=== PATIENT | male | born 1995 | race Caucasian/White ===

== ENCOUNTER 2016-09-18 19:56 | Emergency (ER) | payer BC ==
[~2016-09-18] VITALS: Ht 182.9 cm; Wt 87.5 kg
[~2016-09-18 19:56] MED LIST: AZITTAB PO
[2016-09-18 20:09] VITALS: BP 147/78; PULSE 52; TEMP 36.6; O2SAT 99; Ht 182.9 cm; Wt 87.5 kg
--- NOTE | 2016-09-18 20:37 | EMERGENCY ROOM VISIT NOTE ---
ED Visit Note First contact with patient: 20:24 CHIEF COMPLAINT: Tick bite on back HISTORY OF PRESENT ILLNESS: This 21-year-old male presents the ER stating he thinks he has a tick bite on his back. The patient states that he noticed some itching and red area on his back today. He also noticed that there is a black spot associated with the red area. He does admit that [place]. The patient did not try to remove the tick. REVIEW OF SYSTEMS: 6 system review was performed and was negative unless stated otherwise in history of present illness. PMH: The patient is healthy; there is no significant medical or surgical history. SOCIAL HISTORY: Patient lives with his parents. The patient denies any tobacco or alcohol use. PHYSICAL EXAM: Vital Signs: Were reviewed Reviewed Nurse's notes. GEN.: 21- year-old male appears in no acute distress. MENTAL Status: Alert and oriented 3. BACK: The patient has multiple freckles and nevi on his upper back. The area of concern there is a approximately 6 mm of raised slightly red and scaly lesion with a small black dot noted on the inferior aspect. No external tick parts identified. EMERGENCY COURSE: I discussed with the patient that I do not feel that this is a tick bite but is rather an abnormal nevi. I used a small 28-gauge needle to open a dark area and there were no visible tick parts under microscopic examination. Bacitracin and a bandage was applied. DIAGNOSIS: Nevi upper back DISCHARGE INSTRUCTIONS & TREATMENT: Recommend appointment with dermatology for further evaluation and treatment. Current/Historical Medications Scheduled Azithromycin (Z-Malik) (Zithromax (Z-Malik)), 0 PKT PO UD Allergies Coded Allergies: Amoxicillin (Verified Allergy, Intermediate, rash, 09/18/16) Vital Signs Date Time Temp Pulse Resp B/P Pulse Ox O2 Delivery O2 Flow Rate FiO2 09/18/16 20:09 36.6 52 18 147/78 99 Room Air Departure Information Referrals No Doctor, Assigned (PCP) Patient Instructions My [facility]
== END 2016-09-18 20:51 | disposition home or self-care (01) ==
LOC: C.EDB 20:00 → C.EDD 20:51
DX: D22.9 Melanocytic nevi, unspecified (principal)

== ENCOUNTER 2016-12-04 21:11 | Emergency (ER) | payer BC ==
[~2016-12-04] VITALS: Ht 185.4 cm; Wt 75.0 kg
[2016-12-04 21:15] VITALS: TEMP 36.5
[2016-12-04 21:22] VITALS: O2SAT 97
[2016-12-04] MEDS ORDERED: MULT-513 PO (21:32)
[2016-12-04] MEDS ORDERED: OMEG10007 PO (21:32)
[2016-12-04] MEDS ORDERED: GARL1CAP6 PO (21:32)
[2016-12-04] MEDS ORDERED: GINS1CAP PO (21:32)
[2016-12-04] MEDS ORDERED: SODIUM CHLORIDE 0.9% 1000ML 1,000 ML IV STA (21:38)
[2016-12-04 21:41] VITALS: Ht 185.4 cm; Wt 75.0 kg
[2016-12-04 22:06] LABS: HEMATOCRIT 40.6 % (42-52); MEAN CELL VOLUME 88.6 fL (80-100); MEAN CORPUSCULAR HEMOGLOBIN 30.6 pg (25-34); MEAN CORPUSCULAR HGB CONC 34.5 g/dl (32-36); MEAN PLATELET VOLUME 10.9 fL (7.4-10.4); PLATELET COUNT 158 K/uL (130-400); RED BLOOD COUNT 4.58 M/uL (4.7-6.1); WHITE BLOOD COUNT 4.01 K/uL (4.8-10.8)
[2016-12-04 22:09] LABS: URINE APPEARANCE CLEAR (CLEAR); URINE BILIRUBIN NEG (NEG); URINE COLOR YELLOW; URINE NITRITE NEG (NEG); UROBILINOGEN NEG (NEG)
[2016-12-04 22:10] LABS: MANUAL MICROSCOPIC REQUIRED? NO; REVIEW REQ? NO
[2016-12-04 22:16] LABS: INR 1.1 (0.9-1.1); PARTIAL THROMBOPLASTIN RATIO 1.2; PROTHROMBIN TIME (PATIENT) 11.4 SECONDS (9.0-12.0)
[2016-12-04 22:25] LABS: ALT/SGPT 24 U/L (12-78); BLOOD UREA NITROGEN 11 mg/dl (7-18); BUN/CREATININE RATIO 10.1 (10-20); CALCIUM 8.9 mg/dl (8.5-10.1); CARBON DIOXIDE 28 mmol/L (21-32); CHLORIDE 108 mmol/L (98-107); GLUCOSE 99 mg/dl (70-99); MAGNESIUM 2.1 mg/dl (1.8-2.4); POTASSIUM 3.8 mmol/L (3.5-5.1); SODIUM 142 mmol/L (136-145)
--- NOTE | 2016-12-04 22:29 | DIAGNOSTIC IMAGING REPORT ---
CHEST ONE VIEW PORTABLE CLINICAL HISTORY: EVALUATE WEAKNESS dyspnea COMPARISON STUDY: No previous studies for comparison. FINDINGS: The bones soft tissues and hemidiaphragms are normal. The cardiomediastinal silhouette is normal. The lungs are clear. The pulmonary vasculature is normal. IMPRESSION: Negative chest. The above report was generated using voice recognition software. It may contain grammatical, syntax or spelling errors. Electronically signed by: Gary Redmond M.D. 12/04/2016 10:28 PM Dictated Date/Time: 12/04/2016 10:27 PM
[2016-12-04 22:36] LABS: ALKALINE PHOSPHATASE 66 U/L (45-117); AST/SGOT 16 U/L (15-37); CKMB/CK RATIO 0.8 (0-3.0)
[2016-12-04 23:01] LABS: C-REACTIVE PROTEIN < 0.29 mg/dl (0-0.29)
[2016-12-04 23:07] LABS: LYME DISEASE AB IGG NEG (NEG); LYME DISEASE AB IGM NEG (NEG)
[2016-12-04 23:12] LABS: BASO % 0.5 %; BASO ABS # 0.02 K/uL (0-0.2); COMPLETE YES; EOS % 1.5 %; LYMPH % 56.4 %; LYMPH ABS # 2.26 K/uL (1.2-3.4); MONO % 7.5 %; NEUT % 34.1 %
[2016-12-04 23:32] VITALS: BP 108/73; PULSE 51; O2SAT 99
--- NOTE | 2016-12-05 01:13 | EMERGENCY ROOM VISIT NOTE ---
History Report prepared by Ezekiel: Eloisa Waters Under the Supervision of: Dr. Oscar Pappas M.D. First contact with patient: 21:31 Chief Complaint: BRADYCARDIA Stated Complaint: LOW HEART RATE, FATIGUE, SHAKINESS History of Present Illness The patient is a 21 year old male who presents to the Emergency Room with complaints of persistent bradycardia that began prior to arrival. The patient states that over the past day he has been feeling short of breath and fatigued. He additionally states that he was feeling chilled and shaky all day. The patient notes that when he arrived home he had his mother who is a nurse took his pulse with a machine and then manually and was found to be 37 beats per minute and 40 beats per minute. He states that this persisted for 20-25 minutes. The patient additionally reports that his blood pressure was at 116/ 60 mmHg. He states that over the past several months he has intermittently felt short of breath and fatigued. The patient additionally reports dizziness that he describes as near syncopal. He states that he has had several tick bites recently. The patient states that he has been experiencing bilateral hand tingling and right thumb numbness. He states that his vaccinations are up to date. The patient denies any recent illnesses. He denies any previous surgeries. Pt denies LOC, headache, fevers, diaphoresis, visual changes, neck pain, chest pain, nausea, vomiting, abdominal pain, back pain, melena, hematochezia, urinary symptoms, numbness, weakness, lymphadenopathy, rash, or other complaints. Source of History: patient Onset: prior to arrival Position: other (global) Symptom Intensity: 37-40 beats per minute Quality: other (bradycardia) Timing: other (persistent) Associated Symptoms: + SOB, + fatigue Note: Associated symptoms: dizziness, near syncopal Review of Systems See HPI for pertinent positives and negatives. A total of ten systems were reviewed and were otherwise negative. Past Medical & Surgical No active medical problems Family History No pertinent family history stated. Social History Smoking Status: Never Smoker Marital Status: single Occupation Status: employed Current/Historical Medications Scheduled Fish Oil (Timpson-3), 1 CAP PO DAILY Garlic (Garlic), 1 MG PO DAILY Ginseng (Ginseng Extract), 1 CAP PO DAILY Multivitamins/Minerals (Mvi With Minerals), 1 TAB PO DAILY Allergies Coded Allergies: Amoxicillin (Verified Allergy, Intermediate, rash, 09/18/16) Physical Exam Vital Signs Date Time Temp Pulse Resp B/P (MAP) Pulse Ox O2 Delivery O2 Flow Rate FiO2 12/04/16 23:32 51 16 108/73 99 Room Air 12/04/16 22:16 56 16 120/66 99 Room Air 12/04/16 22:15 47 121/67 52 120/66 56 134/88 12/04/16 21:29 52 12/04/16 21:22 99 Room Air 12/04/16 21:22 97 Room Air 12/04/16 21:15 36.5 65 16 153/72 100 Room Air Physical Exam GENERAL: Awake, alert, well-appearing, in no distress HENT: Normocephalic, atraumatic. Oropharynx unremarkable. EYES: Normal conjunctiva. Sclera non-icteric. NECK: Supple. No nuchal rigidity. FROM. No JVD. RESPIRATORY: Clear to auscultation. CARDIAC: Bradycardic rate, normal rhythm. Extremities warm and well perfused. Pulses equal. ABDOMEN: Soft, non-distended. No tenderness to palpation. No rebound or guarding. No masses. RECTAL: Deferred. MUSCULOSKELETAL: Chest examination reveals no tenderness. The back is symmetrical on inspection without obvious abnormality. There is no CVA tenderness to palpation. No joint edema. LOWER EXTREMITIES: Calves are equal size bilaterally and non-tender. No edema. No discoloration. NEURO: Normal sensorium. No sensory or motor deficits noted. SKIN: No rash or jaundice noted. Medical Decision & Procedures ER Provider Diagnostic Interpretation: X-ray: Per my interpretation, radiologist review. CHEST ONE VIEW PORTABLE CLINICAL HISTORY: EVALUATE WEAKNESS dyspnea COMPARISON STUDY: No previous studies for comparison. FINDINGS: The bones soft tissues and hemidiaphragms are normal. The cardiomediastinal silhouette is normal. The lungs are clear. The pulmonary vasculature is normal. IMPRESSION: Negative chest. The above report was generated using voice recognition software. It may contain grammatical, syntax or spelling errors. Electronically signed by: Gary Redmond M.D. 12/04/2016 10:28 PM Dictated Date/Time: 12/04/2016 10:27 PM Laboratory Results 12/04/16 21:45 Red Blood Count 4.58, Mean Corpuscular Volume 88.6, Mean Corpuscular Hemoglobin 30.6, Mean Corpuscular Hemoglobin Concent 34.5, Mean Platelet Volume 10.9, Neutrophils (%) (Auto) 34.1, Lymphocytes (%) (Auto) 56.4, Monocytes (%) (Auto) 7.5, Eosinophils (%) (Auto) 1.5, Basophils (%) (Auto) 0.5, Neutrophils # (Auto) 1.37, Lymphocytes # (Auto) 2.26, Monocytes # (Auto) 0.30, Eosinophils # (Auto) 0.06, Basophils # (Auto) 0.02 12/04/16 21:45 Test 12/04/16 21:45 12/04/16 21:55 White Blood Count 4.01 K/uL (4.8-10.8) Red Blood Count 4.58 M/uL (4.7-6.1) Hemoglobin 14.0 g/dL (14.0-18.0) Hematocrit 40.6 % (42-52) Mean Corpuscular Volume 88.6 fL (80-100) Mean Corpuscular Hemoglobin 30.6 pg (25-34) Mean Corpuscular Hemoglobin Concent 34.5 g/dl (32-36) Platelet Count 158 K/uL (130-400) Mean Platelet Volume 10.9 fL (7.4-10.4) Neutrophils (%) (Auto) 34.1 % Lymphocytes (%) (Auto) 56.4 % Monocytes (%) (Auto) 7.5 % Eosinophils (%) (Auto) 1.5 % Basophils (%) (Auto) 0.5 % Neutrophils # (Auto) 1.37 K/uL (1.4-6.5) Lymphocytes # (Auto) 2.26 K/uL (1.2-3.4) Monocytes # (Auto) 0.30 K/uL (0.11-0.59) Eosinophils # (Auto) 0.06 K/uL (0-0.5) Basophils # (Auto) 0.02 K/uL (0-0.2) RDW Standard Deviation 43.4 fL (36.4-46.3) RDW Coefficient of Variation 13.4 % (11.5-14.5) Immature Granulocyte % (Auto) 0.0 % Immature Granulocyte # (Auto) 0.00 K/uL (0.00-0.02) Red Blood Cell Morphology Unremarkable Erythrocyte Sedimentation Rate 2 mm/hr (0-14) Prothrombin Time 11.4 SECONDS (9.0-12.0) Prothromb Time International Ratio 1.1 (0.9-1.1) Activated Partial Thromboplast Time 30.7 SECONDS (21.0-31.0) Partial Thromboplastin Ratio 1.2 D-Dimer < 190 ug/L FEU (0-500) Anion Gap 6.0 mmol/L (3-11) Est Creatinine Clear Calc Drug Dose 111.7 ml/min Estimated GFR () 109.9 Estimated GFR (Non- 94.8 BUN/Creatinine Ratio 10.1 (10-20) Calcium Level 8.9 mg/dl (8.5-10.1) Magnesium Level 2.1 mg/dl (1.8-2.4) Total Bilirubin 0.7 mg/dl (0.2-1) Direct Bilirubin 0.2 mg/dl (0-0.2) Aspartate Amino Transf (AST/SGOT) 16 U/L (15-37) Alanine Aminotransferase (ALT/SGPT) 24 U/L (12-78) Alkaline Phosphatase 66 U/L (45-117) Total Creatine Kinase 103 U/L (39-308) Creatine Kinase MB 0.8 ng/ml (0.5-3.6) Creatine Kinase MB Ratio 0.8 (0-3.0) Troponin I < 0.015 ng/ml (0-0.045) C-Reactive Protein < 0.29 mg/dl (0-0.29) Total Protein 7.3 gm/dl (6.4-8.2) Albumin 4.3 gm/dl (3.4-5.0) Thyroid Stimulating Hormone (TSH) 3.500 uIu/ml (0.300-4.500) Lyme Disease IgG Antibody NEG (NEG) Lyme Disease IgM Antibody NEG (NEG) Urine Color YELLOW Urine Appearance CLEAR (CLEAR) Urine pH 8.0 (4.5-7.5) Urine Specific [place]ett 1.010 (1.000-1.030) Urine Protein NEG (NEG) Urine Glucose (UA) NEG (NEG) Urine Ketones NEG (NEG) Urine Occult Blood NEG (NEG) Urine Nitrite NEG (NEG) Urine Bilirubin NEG (NEG) Urine Urobilinogen NEG (NEG) Urine Leukocyte Esterase NEG (NEG) Laboratory results reviewed by me Medications Administered Medications (Trade) Dose Ordered Sig/Devyn Route Start Time Stop Time Status Last Admin Dose Admin Sodium Chloride 1,000 ml @ 125 mls/hr Q8H STAT IV 12/04/16 21:38 12/05/16 00:28 DC 12/04/16 21:57 125 MLS/HR ECG Indication: bradycardia Rate (beats per minute): 57 Rhythm: sinus bradycardia (with sinus arrhythmia) Findings: no ectopy, other (RSR prime pattern in V2, normal intervals) ED Course 2132: The patient was evaluated in room C10. A complete history and physical exam was performed by the medical student. 2137: Ordered Sodium Chloride 1000 ml @ 125 mls/hr IV. 2206: The patient was evaluated in room C10. A complete history and physical exam was performed. 2335: I reevaluated the patient and he is resting comfortably. I discussed the exam findings with him and his family and I discussed the treatment plan. They verbalized complete understanding and agreement. The patient is ready to go home. He will follow up with cardiology. Medical Decision Triage Nursing notes reviewed. The patient's presentation and history were concerning for bradycardia and malaise. Etiologies such as ectopy, cardiac dysrhythmia, vagal response, electrolyte abnormality, thyroid dysfunction, pulmonary embolism, infection, gastrointestinal, as well as others were entertained. The patient was evaluated. Clinically he was doing well. He noted feeling poorly and had his heart rate taken and it was in the 40s. The patient feels well at this point and his heart rate is fluctuating from the 40s to 60s. ECG revealed bradycardia. There is no evidence of block. Chest x-ray and blood work were unremarkable. The patient has a negative troponin and d-dimer. The patient has no elevation of inflammatory markers. The patient has a subtle leukopenia and CBC. This may support a viral issue as a cause of the malaise and the bradycardia may be a secondary response. As the patient has bradycardia rate now and is asymptomatic I discussed close outpatient follow- up. They will call cardiology tomorrow. He will also need follow-up with his primary physician as well. I gave my usual and customary discussion regarding this issue. By the evaluation outlined above other emergent etiologies such as those listed in the differential, as well as others, were deemed relatively unlikely. The patient was educated about the findings as listed above. All questions were answered and the patient was pleased with the treatment. Return instructions were outlined and the patient was discharged in stable condition. The patient was referred to cardiology and PCP for follow-up for a recheck of the current condition. Medication Reconcilliation Current Medication List: was personally reviewed by me Blood Pressure Screening Patient's blood pressure: Elevated blood pressure Blood pressure disposition: Referred to PCP Impression Primary Impression: Bradycardia Additional Impression: Lightheadedness Scribe Attestation The scribe's documentation has been prepared under my direction and personally reviewed by me in its entirety. I confirm that the note above accurately reflects all work, treatment, procedures, and medical decision making performed by me. Departure Information Dispostion Home / Self-Care Referrals No Doctor, Assigned (PCP) Onel Kenny D.O. Ryan Rowell D.O. Forms HOME CARE DOCUMENTATION FORM, IMPORTANT VISIT INFORMATION Patient Instructions My [facility] Additional Instructions Follow-up with [facility] cardiology tomorrow. Call the office. The number is listed below under Dr. Kenny. Tell the payroll secretary you were in the Emergency Room and referred due to the slow heart rate, bradycardia. Rest and drink plenty of fluids as tolerated. Continue current medications. Resume normal activities once your symptoms resolve. Eat a heart healthy, low fat, low cholesterol diet. Return to the ER immediately for passing out, chest pain, abdominal pain, vomiting, fevers, difficulty breathing, worsening of your condition, or as needed. Follow up with your primary physician as scheduled for a recheck of your current condition. Problem Qualifiers
== END 2016-12-04 23:59 | disposition home or self-care (01) ==
LOC: C.EDB 21:12 → C.EDC 23:59
DX: R00.1 Bradycardia, unspecified (principal); R42 Dizziness and giddiness; Z88.1 Allergy status to other antibiotic agents